=== PATIENT | male | born 1965 | race Caucasian/White ===

== ENCOUNTER 2018-02-27 11:41 | Emergency (ER) | payer OTHER ==
[~2018-02-27] VITALS: Ht 185.4 cm; Wt 99.4 kg
[~2018-02-27 11:41] MED LIST: UNKNOWN PSYCH MED
[2018-02-27 12:00] VITALS: BP 137/91
--- NOTE | 2018-02-27 12:04 | NUR ---
PT AMBULATES TO BED 12
--- NOTE | 2018-02-27 12:21 | NUR ---
PT C/O EPIGASTRIC BURNING PAIN WORSE THE LAST 2 DAYS AGRAVATED WITH FOOD INTAKE; DENIES NVD. VSS; PATIENT POSITIONED FOR COMFORT; HOB ELEVATED; BEDRAILS UP X1; BED DOWN. ER MD MADE AWARE OF PT STATUS.
--- NOTE | 2018-02-27 12:46 | NUR ---
Patient being evaluated by physician at bedside.
[2018-02-27] MEDS ORDERED: DICYCLOMINE HCL LIQUID 20 MG, ALUMINUM HYD/MAG/SIMETHICONE 30 ML, LIDOCAINE VISCOUS 2% ... PO ONE ×3 (13:05)
[2018-02-27] MEDS ORDERED: FAMOTIDINE 20 MG TAB PO ONE (13:05)
[2018-02-27 14:07] VITALS: BP 135/89
--- NOTE | 2018-02-27 14:07 | NUR ---
Patient discharged with v/s stable. Written and verbal after care instructions given and explained. Patient alert, oriented and verbalized understanding of instructions. Ambulatory with steady gait. All questions addressed prior to discharge. ID band removed. Patient advised to follow up with PMD. Rx of PEPCID AND NEXIUM given. Patient educated on indication of medication including possible reaction and side effects. Opportunity to ask questions provided and answered.
== END 2018-02-27 14:07 | disposition home or self-care (01) ==
LOC: MED 11:41
DX: K29.50 Unspecified chronic gastritis without bleeding (principal)
CPT/HCPCS: 99283

== ENCOUNTER 2018-11-16 10:27 | Emergency (ER) | payer MEDICAID, OTHER ==
[~2018-11-16] VITALS: Ht 185.4 cm; Wt 102.1 kg
[2018-11-16 10:36] VITALS: BP 120/57
[2018-11-16 11:50] VITALS: BP 120/57
== END 2018-11-16 11:50 | disposition home or self-care (01) ==
LOC: MED 10:27
DX: M10.071 Idiopathic gout, right ankle and foot (principal)
CPT/HCPCS: 36415; 73610; 84550; 99284; Q0092